=== PATIENT | male | born 1975 ===

== ENCOUNTER 2017-06-18 17:13 | Emergency (ER) | payer SELFPAY ==
[2017-06-18] MEDS ORDERED: Sodium Chloride 0.9% 10 ML Syringe FLUSH PRN (17:45)
--- NOTE | 2017-06-18 18:47 | EDM.PDOC ---
ED HPI GENERAL MEDICAL PROBLEM - General Chief Complaint: Respiratory Problem Stated Complaint: SOB Time Seen by Provider: 06/18/17 17:38 Source of Information: Reports: Patient, RN Notes Reviewed - History of Present Illness INITIAL COMMENTS - FREE TEXT/NARRATIVE: 41-year-old male comes in symptoms of fatigue, increased thirst, chest palpitations, generalized weakness, increased anxiety. His had these symptoms for about a month but much worse the last 2 or 3 days. He states he was out playing darts, drinking heavily with friends 5 nights ago but has had difficulty recovering from that. Continues to be very thirsty. feels like he is hungry, feels like he has to eat every couple of hours or so. He does have history of heartburn, gastric reflux. He is not aware of documented history of hypertension, coronary disease or other known medical problems. No recent cough fever sore throat. No abd pain, nausea, vomiting or diarrhea. Chest Pain Score (Numeric/FACES): 4 - Related Data Allergies Allergy/AdvReac Type Severity Reaction Status Date / Time laundry detergent Allergy Hives Uncoded 06/18/17 17:18 Home Meds: Home Meds Omeprazole [priLOSEC OTC] 20 mg PO DAILY 06/18/17 [History] Ranitidine HCl [Zantac] 150 mg PO DAILY 06/18/17 [History] Past Medical History - Past Health History Medical/Surgical History: Denies Medical/Surgical History HEENT History: Reports: Cataract, Other (See Below) Other HEENT History: Mytopia - Past Surgical History HEENT Surgical History: Reports: Other (See Below) Other HEENT Surgeries/Procedures: Cyst removed in jaw Social & Family History - Family History Family Medical History: Noncontributory - Tobacco Use Smoking Status *Q: Former Smoker Used Tobacco, but Quit: Yes Month Tobacco Last Used: January 2014 - Caffeine Use Caffeine Use: Reports: None Other Caffeine Use: Quit caffeine 2 weeks ago. Was drinking coffee and pops daily. - Alcohol Use Days Per Week of Alcohol Use: 1 Number of Drinks Per Day: 7 Total Drinks Per Week: 7 - Recreational Drug Use Recreational Drug Use: No ED ROS GENERAL - Review of Systems Review Of Systems: See Below Constitutional: Reports: Malaise, Fatigue. Denies: Fever, Chills HEENT: Denies: Sinus Problem, Throat Pain Respiratory: Reports: Cough (occasional). Denies: Shortness of Breath, Pleuritic Chest Pain Cardiovascular: Reports: Chest Pain (occasional ache anterior chest), Lightheadedness, Palpitations Endocrine: Reports: Fatigue GI/Abdominal: Denies: Abdominal Pain, Diarrhea, Nausea, Vomiting Neurological: Reports: Dizziness. Denies: Headache, Numbness, Syncope, Tingling , Trouble Speaking ED EXAM, GENERAL - Physical Exam Exam: See Below General Appearance: Alert, No Apparent Distress, Anxious (mild) Eye Exam: Bilateral Eye: PERRL Throat/Mouth: Normal Inspection Head: Atraumatic. No: Facial Swelling Neck: Supple, Full Range of Motion Respiratory/Chest: No Respiratory Distress, Lungs Clear, Normal Breath Sounds Cardiovascular: Regular Rate, Rhythm GI/Abdominal: Soft, Non-Tender Back Exam: No: CVA Tenderness (L), CVA Tenderness (R) Extremities: Normal Inspection, Normal Range of Motion. No: Leg Pain, Increased Warmth, Redness Neurological: Alert, Oriented, No Motor/Sensory Deficits Psychiatric: Normal Affect Skin Exam: Warm, Dry, Normal Color EKG INTERPRETATION EKG Date: 06/18/17 Rhythm: NSR At[place]: Normal P-Wave: Present QRS: Normal ST-T: Normal Course - Vital Signs Last Recorded V/S: Last Vital Signs Temp 98.6 F 06/18/17 17:24 Pulse 77 06/18/17 20:20 Resp 16 06/18/17 20:20 BP 135/96 H 06/18/17 20:20 Pulse Ox 100 06/18/17 20:20 - Orders/Labs/Meds Orders: Active Orders 24 hr Category Date Time Status EKG 12 Lead [EKG Documentation Completion] [RC] STAT Care 06/18/17 17:29 Active Peripheral IV Care [RC] . DIRECTED Care 06/18/17 17:46 Active Peripheral IV Insertion Adult [OM.PC] Stat Oth 06/18/17 17:46 Ordered Labs: Laboratory Tests 06/18/17 06/18/17 06/18/17 Range/Units 17:16 17:50 17:50 WBC 7.54 (4.23-9.07) K/mm3 RBC 5.44 (4.63-6.08) M/mm3 Hgb 16.0 (13.7-17.5) gm/L Hct 44.5 (40.1-51.0) % MCV 81.8 (79.0-92.2) fl MCH 29.4 (25.7-32.2) pg MCHC 36.0 H (32.2-35.5) g/dl RDW Std Deviation 36.8 (35.1-43.9) fL Plt Count 215 (163-337) K/mm3 MPV 10.5 (9.4-12.3) fl Neut % (Auto) 69.9 H (34.0-67.9) % Lymph % (Auto) 24.0 (21.8-53.1) % [place] % (Auto) 5.8 (5.3-12.2) % Eos % (Auto) 0.1 L (0.8-7.0) Baso % (Auto) 0.1 (0.1-1.2) % Neut # (Auto) 5.26 (1.78-5.38) K/mm3 Lymph # (Auto) 1.81 (1.32-3.57) K/mm3 [place] # (Auto) 0.44 (0.30-0.82) K/mm3 Eos # (Auto) 0.01 L (0.04-0.54) K/mm3 Baso # (Auto) 0.01 (0.01-0.08) K/mm3 D-Dimer, Quantitative (0.19-0.59) mg/L Sodium 138 (136-145) mEq/L Potassium 3.4 L (3.5-5.1) mEq/L Chloride 100 (98-107) mEq/L Carbon Dioxide 20 L (21-32) mEq/L Anion Gap 21.4 H (5-15) BUN 11 (7-18) mg/dL Creatinine 1.3 (0.7-1.3) mg/dL Est Cr Clr Drug Dosing 85.19 mL/min Estimated GFR (MDRD) > 60 (>60) mL/min BUN/Creatinine Ratio 8.5 L (14-18) Glucose 286 H (74-106) mg/dL POC Glucose 296 H (70-105) mg/dL Calcium 9.3 (8.5-10.1) mg/dL Total Bilirubin 0.7 (0.2-1.0) mg/dL AST 21 (15-37) U/L ALT 57 (16-63) U/L Alkaline Phosphatase 108 (46-116) U/L Troponin I < 0.017 (0.00-0.056) ng/mL Total Protein 7.6 (6.4-8.2) g/dl Albumin 4.0 (3.4-5.0) g/dl Globulin 3.6 gm/dL Albumin/Globulin Ratio 1.1 (1-2) Ethyl Alcohol 0.00 (0.00) gm% 06/18/17 06/18/17 Range/Units 17:50 20:47 WBC (4.23-9.07) K/mm3 RBC (4.63-6.08) M/mm3 Hgb (13.7-17.5) gm/L Hct (40.1-51.0) % MCV (79.0-92.2) fl MCH (25.7-32.2) pg MCHC (32.2-35.5) g/dl RDW Std Deviation (35.1-43.9) fL Plt Count (163-337) K/mm3 MPV (9.4-12.3) fl Neut % (Auto) (34.0-67.9) % Lymph % (Auto) (21.8-53.1) % [place] % (Auto) (5.3-12.2) % Eos % (Auto) (0.8-7.0) Baso % (Auto) (0.1-1.2) % Neut # (Auto) (1.78-5.38) K/mm3 Lymph # (Auto) (1.32-3.57) K/mm3 [place] # (Auto) (0.30-0.82) K/mm3 Eos # (Auto) (0.04-0.54) K/mm3 Baso # (Auto) (0.01-0.08) K/mm3 D-Dimer, Quantitative < 0.19 L (0.19-0.59) mg/L Sodium (136-145) mEq/L Potassium (3.5-5.1) mEq/L Chloride (98-107) mEq/L Carbon Dioxide (21-32) mEq/L Anion Gap (5-15) BUN (7-18) mg/dL Creatinine (0.7-1.3) mg/dL Est Cr Clr Drug Dosing mL/min Estimated GFR (MDRD) (>60) mL/min BUN/Creatinine Ratio (14-18) Glucose (74-106) mg/dL POC Glucose 248 H (70-105) mg/dL Calcium (8.5-10.1) mg/dL Total Bilirubin (0.2-1.0) mg/dL AST (15-37) U/L ALT (16-63) U/L Alkaline Phosphatase (46-116) U/L Troponin I (0.00-0.056) ng/mL Total Protein (6.4-8.2) g/dl Albumin (3.4-5.0) g/dl Globulin gm/dL Albumin/Globulin Ratio (1-2) Ethyl Alcohol (0.00) gm% Meds: Medications Discontinued Medications Generic Name Dose Route Start Last Admin Trade Name Freq PRN Reason Stop Dose Admin Sodium Chloride 1,000 mls @ 999 mls/hr 06/18/17 19:00 06/18/17 18:58 Normal Saline IV 999 mls/hr ONETIME KJ Administration Insulin Human Regular 6 unit 06/19/17 20:52 Humulin R SUBCUT 06/19/17 20:53 ONETIME ONE Insulin Human Regular 6 unit 06/18/17 20:52 06/18/17 21:01 Humulin R SUBCUT 06/18/17 20:53 6 unit ONETIME ONE Administration Metoprolol Tartrate 50 mg 06/18/17 18:55 06/18/17 19:00 Lopressor PO 06/18/17 18:56 50 mg ONETIME ONE Administration Sodium Chloride 10 ml 06/18/17 17:45 06/18/17 18:58 Saline Flush FLUSH 10 ml ASDIRECTED PRN Administration Keep Vein Open - Re-Assessments/Exams Free Text/Narrative Re-Assessment/Exam: 06/19/17 15:17 Labs are as documented. EKG was normal, no ectopy noted while in ED Glucose came back elevated at 286, other labs relatively normal. repeat glucose in the 250 range. 6 units regular insulin ordered. He has an appointment in 2 days with fasting labs ordered. Discharge instr. as documented. Departure - Departure Time of Disposition: 20:30 Disposition: Home, Self-Care 01 Condition: Fair Clinical Impression: Hyperglycemia - Discharge Information Instructions: Hyperglycemia Referrals: Trish Kang PA [Primary Care Provider] - Forms: ED Department Discharge Additional Instructions: Your blood sugar came back quite elevated at 286 this evening. Normal would be less than 110. Watch your carb and sugar foods extremely carefully, avoid these foods as much as possible. Also avoid alcohol as much as possible, especially for now. Continue to drink plenty of water to maintain hydration. Fasting lab work Tuesday morning and then follow up with [facility] at clinic as planned. Return to ED as needed. - My Orders Last 24 Hours: My Active Orders 06/18/17 17:29 EKG 12 Lead [EKG Documentation Completion] [RC] STAT 06/18/17 17:46 Peripheral IV Care [RC] . DIRECTED Peripheral IV Insertion Adult [OM.PC] Stat - Assessment/Plan Last 24 Hours: My Active Orders 06/18/17 17:29 EKG 12 Lead [EKG Documentation Completion] [RC] STAT 06/18/17 17:46 Peripheral IV Care [RC] . DIRECTED Peripheral IV Insertion Adult [OM.PC] Stat
[2017-06-18] MEDS ORDERED: Metoprolol Tartrate 50 MG Tab PO ONE (18:55)
[2017-06-18] MEDS ORDERED: Sodium Chloride 0.9% 1,000 ML IV SCH (19:00)
[2017-06-18] MEDS ORDERED: Insulin Regular, Human 100 Units/ML 3 ML Vial SUBCUT ONE (20:52)
--- NOTE | 2017-06-19 11:55 | CR ---
Chest: Portable view of the chest was obtained. Comparison: No prior study. Heart size and mediastinum are normal. Lungs are clear. Bony structures are grossly intact. Impression: 1. Nothing acute is identified on portable chest x-ray. Diagnostic code #1
[2017-06-19] MEDS ORDERED: Insulin Regular, Human 100 Units/ML 3 ML Vial SUBCUT ONE (20:52)
== END 2017-06-18 21:15 | disposition home or self-care (01) ==
LOC: JD.ED 17:13
DX: R73.9 Hyperglycemia, unspecified (principal); Z91.09 Other allergy status, other than to drugs and biological substances; Z79.899 Other long term (current) drug therapy; Z87.891 Personal history of nicotine dependence
CPT/HCPCS: 36415; 71045; 80053; 82962; 84484; 85025; 85379; 93005; 96360; 96372; 99285; A9270; G0480; J1817; J7040; J7050; 93010; 99284-25

== ENCOUNTER 2020-07-23 10:59 | Emergency (ER) | payer BC ==
[2020-07-23] MEDS ORDERED: Sodium Chloride 0.9% 10 ML Syringe FLUSH PRN (11:11)
--- NOTE | 2020-07-23 11:31 | EDM.PDOC ---
ED HPI GENERAL MEDICAL PROBLEM - General Chief Complaint: Chest Pain Stated Complaint: SOB/CHEST PAIN Time Seen by Provider: 07/23/20 11:08 Source of Information: Reports: Patient, RN Notes Reviewed History Limitations: Reports: No Limitations - History of Present Illness INITIAL COMMENTS - FREE TEXT/NARRATIVE: Patient is a 44-year-old male who presents to the ED for the evaluation of his back and chest pain. He notes this was a very sudden onset, about 1 hour ago. He notes that he got up this morning and went to do his laundry, stooped over a little bit, and then felt a sudden burning sensation in his mid to low back, that radiates to the front of his chest. He has not felt pain like this before ever in his life. He did state this made him become short of breath as the pain set on. He notes that it is somewhat painful also to take a deep breath. He does note a history of hypertension and diabetes, and he did take his medications just prior to all of this happening. He does state that he thinks it could maybe just be a pulled muscle or a gas bubble. He has had no fevers or chills, cough, nausea/vomiting/diarrhea. Primary care provider is Lawrence Charlton. back/chest Pain Score (Numeric/FACES): 7 - Related Data Allergies Allergy/AdvReac Type Severity Reaction Status Date / Time laundry detergent Allergy Hives Uncoded 07/23/20 11:11 Home Meds: Home Meds Omeprazole [priLOSEC OTC] 20 mg PO DAILY 06/18/17 [History] Ranitidine HCl [Zantac] 150 mg PO DAILY PRN 06/18/17 [History] Lisinopril 10 mg PO DAILY 10/01/17 [History] atorvaSTATin [Lipitor] 20 mg PO BEDTIME 10/01/17 [History] metFORMIN HCl [Metformin HCl] 1,000 mg PO BID 10/01/17 [History] Past Medical History - Past Health History Medical/Surgical History: Denies Medical/Surgical History HEENT History: Reports: Cataract, Other (See Below) Other HEENT History: Mytopia Cardiovascular History: Reports: High Cholesterol, Hypertension Respiratory History: Reports: None Gastrointestinal History: Reports: None Genitourinary History: Reports: None Musculoskeletal History: Reports: None Neurological History: Reports: None Psychiatric History: Reports: Anxiety Endocrine/Metabolic History: Reports: Diabetes, Type II Immunologic History: Reports: None Oncologic (Cancer) History: Reports: None Dermatologic History: Reports: None - Infectious Disease History Infectious Disease History: Reports: None - Past Surgical History Head Surgeries/Procedures: Reports: None HEENT Surgical History: Reports: Other (See Below) Other HEENT Surgeries/Procedures: Cyst removed in jaw Social & Family History - Family History Family Medical History: No Pertinent Family History - Tobacco Use Tobacco Use Status *Q: Never Tobacco User - Caffeine Use Caffeine Use: Reports: None Other Caffeine Use: Quit caffeine 2 weeks ago. Was drinking coffee and pops daily. - Recreational Drug Use Recreational Drug Use: No ED ROS GENERAL - Review of Systems Review Of Systems: Comprehensive ROS is negative, except as noted in HPI. ED EXAM, GENERAL - Physical Exam Exam: See Below Exam Limited By: No Limitations General Appearance: Alert, WD/WN, No Apparent Distress, Anxious (somewhat generalized) Respiratory/Chest: No Respiratory Distress, Lungs Clear, Normal Breath Sounds, No Accessory Muscle Use, Other (somewhat tender to the right lateral chest and into the posterior ribs) Cardiovascular: Normal Peripheral Pulses, Regular Rate, Rhythm, No Edema Peripheral Pulses: 2+: Radial (L), Radial (R) GI/Abdominal: Normal Bowel Sounds, Soft, Non-Tender, No Distention, No Mass Extremities: Normal Inspection, Normal Capillary Refill Neurological: Alert, Oriented, Normal Cognition, No Motor/Sensory Deficits Psychiatric: Normal Affect, Normal Mood Skin Exam: Warm, Dry, Intact, Normal Color, No Rash #1 Interpretation EKG Date: 07/23/20 Time: 11: Rhythm: NSR Rate (Beats/Min): 69 [place]: Normal P-Wave: Present QRS: Normal ST-T: Normal QT: Normal EKG Interpretation Comments: No obvious ischemia or acute ST changes noted, reviewed by myself and Dr. Logan. Course - Vital Signs Last Recorded V/S: Last Vital Signs Temp 96.8 F L 07/23/20 11:06 Pulse 74 07/23/20 11:06 Resp 19 07/23/20 11:06 BP 152/100 H 07/23/20 11:06 Pulse Ox 100 07/23/20 11:06 - Orders/Labs/Meds Orders: Active Orders 24 hr Category Date Time Status EKG Documentation Completion [RC] STAT Care 07/23/20 11:11 Active Peripheral IV Care [RC] . DIRECTED Care 07/23/20 11:11 Active Chest 1V Frontal [CR] Stat Exams 07/23/20 11:11 Taken Sodium Chloride 0.9% [Saline Flush] Med 07/23/20 11:11 Active 10 ml FLUSH ASDIRECTED PRN Peripheral IV Insertion Adult [OM.PC] Stat Oth 07/23/20 11:11 Ordered Medication Orders Sodium Chloride (Sodium Chloride 0.9% 10 Ml Syringe) 10 ml FLUSH ASDIRECTED PRN PRN Reason: Keep Vein Open Last Admin: 07/23/20 11:13 Dose: 10 ml Documented by: ALF Labs: Laboratory Tests 07/23/20 07/23/20 07/23/20 Range/Units 11:08 11:08 11:08 WBC 8.31 (4.23-9.07) K/mm3 RBC 6.06 (4.63-6.08) M/mm3 Hgb 17.0 (13.7-17.5) gm/dl Hct 51.3 H (40.1-51.0) % MCV 84.7 (79.0-92.2) fl MCH 28.1 (25.7-32.2) pg MCHC 33.1 (32.2-35.5) g/dl RDW Std Deviation 41.7 (35.1-43.9) fL Plt Count 245 (163-337) K/mm3 MPV 10.5 (9.4-12.3) fl Neut % (Auto) 60.6 (34.0-67.9) % Lymph % (Auto) 32.3 (21.8-53.1) % [place] % (Auto) 5.7 (5.3-12.2) % Eos % (Auto) 1.0 (0.8-7.0) Baso % (Auto) 0.2 (0.1-1.2) % Neut # (Auto) 5.04 (1.78-5.38) K/mm3 Lymph # (Auto) 2.68 (1.32-3.57) K/mm3 [place] # (Auto) 0.47 (0.30-0.82) K/mm3 Eos # (Auto) 0.08 (0.04-0.54) K/mm3 Baso # (Auto) 0.02 (0.01-0.08) K/mm3 Manual Slide Review Normal smear PT 10.6 (9.7-12.0) SECONDS INR 0.99 APTT 29.0 (21.7-31.4) SECONDS Sodium 141 (136-145) mEq/L Potassium 4.6 (3.5-5.1) mEq/L Chloride 103 (98-107) mEq/L Carbon Dioxide 27 (21-32) mEq/L Anion Gap 15.6 H (5-15) BUN 17 (7-18) mg/dL Creatinine 1.5 H (0.7-1.3) mg/dL Est Cr Clr Drug Dosing 71.54 mL/min Estimated GFR (MDRD) 50 (>60) mL/min BUN/Creatinine Ratio 11.3 L (14-18) Glucose 180 H (74-106) mg/dL Calcium 9.4 (8.5-10.1) mg/dL Magnesium 2.2 (1.8-2.4) mg/dl Total Bilirubin 0.7 (0.2-1.0) mg/dL AST 24 (15-37) U/L ALT 43 (16-63) U/L Alkaline Phosphatase 103 (46-116) U/L Troponin I < 0.017 (0.00-0.056) ng/mL NT-Pro-B Natriuret Pep (0-125) pg/mL Total Protein 8.3 H (6.4-8.2) g/dl Albumin 4.4 (3.4-5.0) g/dl Globulin 3.9 gm/dL Albumin/Globulin Ratio 1.1 (1-2) 07/23/20 Range/Units 11:08 WBC (4.23-9.07) K/mm3 RBC (4.63-6.08) M/mm3 Hgb (13.7-17.5) gm/dl Hct (40.1-51.0) % MCV (79.0-92.2) fl MCH (25.7-32.2) pg MCHC (32.2-35.5) g/dl RDW Std Deviation (35.1-43.9) fL Plt Count (163-337) K/mm3 MPV (9.4-12.3) fl Neut % (Auto) (34.0-67.9) % Lymph % (Auto) (21.8-53.1) % [place] % (Auto) (5.3-12.2) % Eos % (Auto) (0.8-7.0) Baso % (Auto) (0.1-1.2) % Neut # (Auto) (1.78-5.38) K/mm3 Lymph # (Auto) (1.32-3.57) K/mm3 [place] # (Auto) (0.30-0.82) K/mm3 Eos # (Auto) (0.04-0.54) K/mm3 Baso # (Auto) (0.01-0.08) K/mm3 Manual Slide Review PT (9.7-12.0) SECONDS INR APTT (21.7-31.4) SECONDS Sodium (136-145) mEq/L Potassium (3.5-5.1) mEq/L Chloride (98-107) mEq/L Carbon Dioxide (21-32) mEq/L Anion Gap (5-15) BUN (7-18) mg/dL Creatinine (0.7-1.3) mg/dL Est Cr Clr Drug Dosing mL/min Estimated GFR (MDRD) (>60) mL/min BUN/Creatinine Ratio (14-18) Glucose (74-106) mg/dL Calcium (8.5-10.1) mg/dL Magnesium (1.8-2.4) mg/dl Total Bilirubin (0.2-1.0) mg/dL AST (15-37) U/L ALT (16-63) U/L Alkaline Phosphatase (46-116) U/L Troponin I (0.00-0.056) ng/mL NT-Pro-B Natriuret Pep 13 (0-125) pg/mL Total Protein (6.4-8.2) g/dl Albumin (3.4-5.0) g/dl Globulin gm/dL Albumin/Globulin Ratio (1-2) Meds: Medications Generic Name Dose Route Start Last Admin Trade Name Freq PRN Reason Stop Dose Admin Sodium Chloride 10 ml 07/23/20 11:11 07/23/20 11:13 Sodium Chloride 0.9% 10 Ml Syringe FLUSH 10 ml ASDIRECTED PRN Administration Keep Vein Open - Re-Assessments/Exams Free Text/Narrative Re-Assessment/Exam: 07/23/20 11:30 Patient presents to the ED for the evaluation of his sudden onset chest pain. EKG done at time of triage shows normal sinus rhythm with no acute ST change or abnormalities reviewed by myself and Dr. Logan. We will get baseline labs, chest x-ray for further evaluation. Likely this could just be muscle strain due to his right chest being tender on the lateral portion and into the back. 07/23/20 11:56 Labs have returned and are unremarkable and the troponin is undetectably low. I will discharge this patient with conservative recommendations and have him follow up with his primary, as his chest pain was reproducible with palpation. Departure - Departure Time of Disposition: 12:01 Disposition: Home, Self-Care 01 Condition: Good Clinical Impression: Chest pain Qualifiers: Chest pain type: intercostal pain Qualified Code(s): R07.82 - Intercostal pain Instructions: Nonspecific Chest Pain, Adult, [id number], Chest Wall Pain, [id number] Referrals: Lawrence Charlton PA-C [Primary Care Provider] - Forms: ED Department Discharge Additional Instructions: You were evaluated in the ER today for your chest pain. EKG, chest x-ray, laboratory evaluation done at today's visit all is essentially unremarkable, you are not suffering from an acute heart attack at today's visit. Go home, rest try to relax for the rest of the day, increase your oral fluid intake you may try 500 mg Tylenol every 6 hours as needed for further pain or discomfort. If you would find benefit from going to a chiropractor, that might be beneficial to you as well for suspected musculoskeletal etiology of your back pain. Follow-up with your primary care provider at your next appointment, or sooner if the pain does not seem to be getting much better. Please return to the ER at any time if symptoms change or worsen. Sepsis Event Note (ED) - Evaluation Sepsis Screening Result: No Definite Risk - Focused Exam Vital Signs: Vital Signs Temp Pulse Resp BP Pulse Ox 07/23/20 11:06 96.8 F L 74 19 152/100 H 100 - My Orders Last 24 Hours: My Active Orders 07/23/20 11:11 EKG Documentation Completion [RC] STAT Peripheral IV Care [RC] . DIRECTED Chest 1V Frontal [CR] Stat Sodium Chloride 0.9% [Saline Flush] 10 ml FLUSH ASDIRECTED PRN Peripheral IV Insertion Adult [OM.PC] Stat - Assessment/Plan Last 24 Hours: My Active Orders 07/23/20 11:11 EKG Documentation Completion [RC] STAT Peripheral IV Care [RC] . DIRECTED Chest 1V Frontal [CR] Stat Sodium Chloride 0.9% [Saline Flush] 10 ml FLUSH ASDIRECTED PRN Peripheral IV Insertion Adult [OM.PC] Stat
--- NOTE | 2020-07-23 12:27 | CR ---
Chest: Portable view of the chest was obtained. Comparison: Prior chest x-ray of 06/18/17. Heart size and mediastinum are within normal limits. Lungs are clear with no acute parenchymal change. No acute osseous abnormality is appreciated. Impression: 1. Nothing acute is appreciated on portable chest x-ray. Diagnostic code #1
== END 2020-07-23 12:18 | disposition home or self-care (01) ==
LOC: JD.ED 10:59
DX: R07.82 Intercostal pain (principal); E78.00 Pure hypercholesterolemia, unspecified; I10 Essential (primary) hypertension; E11.9 Type 2 diabetes mellitus without complications; Z79.84 Long term (current) use of oral hypoglycemic drugs; Z79.899 Other long term (current) drug therapy; Z91.048 Other nonmedicinal substance allergy status
CPT/HCPCS: 36415; 71045; 71045-26; 80053; 83735; 83880; 84484; 85025; 85610; 85730; 93005; 93010; 99284; 99285-25

== ENCOUNTER 2021-05-26 08:52 | Day surgery (SDC) | payer BC ==
[~2021-05-26 08:52] MED LIST: Lactated Ringers 1,000 ML IV SCH; Lidocaine 1%/Sod Bicarbonate in NS 8.4% 1 ML Syringe IDERM PRN; Sodium Chloride 0.9% 10 ML Syringe FLUSH SCH
[2021-05-26] MEDS ORDERED: Ondansetron 4 MG/2 ML SDV ONE (09:16)
[2021-05-26] MEDS ORDERED: fentaNYL 100 MCG/2 ML SDV ONE (09:17)
[2021-05-26] MEDS ORDERED: Propofol 200 MG/20 ML SDV ONE (09:17)
[2021-05-26] MEDS ORDERED: Midazolam 1 MG/ML 2 ML SDV ONE (09:17)
[2021-05-26] MEDS ORDERED: Lactated Ringers 1,000 ML ONE (12:29)
== END 2021-05-26 11:50 | disposition home or self-care (01) ==
LOC: JD.SDS 08:52
PROVIDERS: ATTEND Surgery
DX: D12.0 Benign neoplasm of cecum (principal); D72.820 Lymphocytosis (symptomatic); K21.9 Gastro-esophageal reflux disease without esophagitis; K44.9 Diaphragmatic hernia without obstruction or gangrene; K64.8 Other hemorrhoids; K62.5 Hemorrhage of anus and rectum; N18.9 Chronic kidney disease, unspecified; L60.0 Ingrowing nail; E78.2 Mixed hyperlipidemia; E11.22 Type 2 diabetes mellitus with diabetic chronic kidney disease; Z79.899 Other long term (current) drug therapy; Z79.84 Long term (current) use of oral hypoglycemic drugs; Z98.890 Other specified postprocedural states; Z87.891 Personal history of nicotine dependence; Z88.8 Allergy status to other drugs, medicaments and biological substances; Z91.09 Other allergy status, other than to drugs and biological substances
CPT/HCPCS: 43239; 45380; J2250; J2405; J2704; J3010; J7120; 00813